=== PATIENT | male | born 1965 | race Two or more races ===

== ENCOUNTER 2024-02-20 22:02 | Inpatient (IN) | payer MEDICAID, OTHER ==
[~2024-02-20] VITALS: Ht 172.7 cm; Wt 98.4 kg
[2024-02-20 23:00] VITALS: PULSE 81; O2SAT 96
[2024-02-21] VITALS (7 sets, daily range): BP systolic 126–133; BP diastolic 63–75; PULSE 65–73; RESP 14–18; TEMP 97.8–98.4; O2SAT 97–98
[2024-02-21 00:37] LABS: Basophils # (auto) 0.1 10 ^3/uL (0-0.2); Basophils % (auto) 0.7 % (0.0-2.0); Eosinophils # (auto) 0.1 10 ^3/uL (0-0.8); Eosinophils % (auto) 0.8 % (0.0-7.0); Hematocrit 44.8 % (41.0-53.0); Hemoglobin 15.5 g/dL (13.5-17.5); Lymphocytes # (auto) 3.3 10 ^3/uL (0.4-5.4); Lymphocytes % (auto) 22.6 % (10.0-50.0); Mean Corpuscular Hemoglobin 28.2 pg (28.0-32.0); Mean Corpuscular Hgb Conc. 34.5 g/dL (32.0-36.0); Mean Corpuscular Volume 81.8 fL (80.0-100.0); Monocytes # (auto) 1.4 10 ^3/uL (0-1.3); Monocytes % (auto) 9.3 % (0.0-12.0); Neutrophils # (auto) 9.7 10 ^3/uL (1.6-8.6); Neutrophils % (auto) 66.6 % (37.0-80.0); Nucleated Red Blood Cells % 0.1 %; Platelet Count (auto) 241 10^3/uL (140-450); Red Blood Cells 5.48 10^6/uL (4.5-5.90); White Blood Cell 14.6 10^3/uL (4.4-10.8)
[2024-02-21 00:52] LABS: Chloride 106 mmol/L (98-107); Sodium 141 mmol/L (136-145)
[2024-02-21 00:53] LABS: Anion Gap 10 (5-15); Calcium 9.4 mg/dL (8.7-10.4); Carbon Dioxide 25 mmol/L (20-30)
[2024-02-21 00:58] LABS: BUN/Creatinine Ratio 21.3 (10.0-20.0); Blood Urea Nitrogen 23 mg/dL (9-23); Glucose 109 mg/dL (74-106)
[2024-02-21] MEDS: HALOPERIDOL LACTATE 5 MG/ML INJ VIAL IM ONE (02:54)
[2024-02-21] MEDS ORDERED: HYDROcodone-ACET 5/325MG TAB PO PRN (03:00)
[2024-02-21] MEDS ORDERED: cefTRIAXone 1GM/50ML D5W 50 ML IV ONE (03:00)
[2024-02-21] MEDS ORDERED: DEXTROSE (50%) 50ML SYRG IV PRN (03:00)
[2024-02-21] MEDS ORDERED: ACETAMINOPHEN 325 MG TAB PO PRN (03:00)
[2024-02-21] MEDS ORDERED: ONDANSETRON HCL 4 MG/2 ML VIAL IV PRN (03:00)
[2024-02-21] MEDS ORDERED: MORPHINE SULFATE INJ 2 MG/ml SYRG IV PRN (03:30)
[2024-02-21] MEDS ORDERED: NITROGLYCERIN 0.4 MG SL TAB SL PRN (03:30)
[2024-02-21] MEDS ORDERED: cefTRIAXone W LIDOCAINE 1 GM IM IM SCH (04:30)
[2024-02-21] MEDS: SODIUM CHLOR 0.9% PF (SALINE LOCK) 10ML VIAL/SYR IV SCH (06:25)
[2024-02-21] MEDS: cefTRIAXone 1GM/50ML D5W 50 ML IV SCH (06:25)
[2024-02-21] MEDS: InsuLIN REG 1unit/0.01ml Soln (100units/ml) SC SCH (06:58)
[2024-02-21] MEDS: ACCU-CHEK COMFORT CURVE STRIP VI SCH (06:59)
[2024-02-21 09:17] LABS: Basophils # (auto) 0.1 10 ^3/uL (0-0.2); Basophils % (auto) 0.5 % (0.0-2.0); Eosinophils # (auto) 0.1 10 ^3/uL (0-0.8); Eosinophils % (auto) 1.1 % (0.0-7.0); Hematocrit 44.2 % (41.0-53.0); Hemoglobin 15.4 g/dL (13.5-17.5); Lymphocytes # (auto) 2.2 10 ^3/uL (0.4-5.4); Mean Corpuscular Hemoglobin 28.2 pg (28.0-32.0); Mean Corpuscular Hgb Conc. 34.8 g/dL (32.0-36.0); Monocytes # (auto) 1.1 10 ^3/uL (0-1.3); Monocytes % (auto) 9.9 % (0.0-12.0); Neutrophils # (auto) 7.6 10 ^3/uL (1.6-8.6); Neutrophils % (auto) 68.5 % (37.0-80.0); Nucleated Red Blood Cells % 0.1 %; Platelet Count (auto) 217 10^3/uL (140-450); Red Blood Cells 5.46 10^6/uL (4.5-5.90); White Blood Cell 11.1 10^3/uL (4.4-10.8)
[2024-02-21 09:28] LABS: Alanine Aminotransferase 30 U/L (7-40); Alkaline Phosphatase 77 U/L (46-116); Anion Gap 5 (5-15); Aspartate Aminotransferase 25 U/L (13-40); BUN/Creatinine Ratio 17.6 (10.0-20.0); Blood Urea Nitrogen 18 mg/dL (9-23); Calcium 9.3 mg/dL (8.7-10.4); Carbon Dioxide 27 mmol/L (20-30); Chloride 108 mmol/L (98-107); Glucose 108 mg/dL (74-106); Potassium 4.2 mmol/L (3.5-5.1); Sodium 140 mmol/L (136-145)
[2024-02-21 09:29] LABS: Albumin 4.4 g/dL (3.2-4.8); Bilirubin, Total 0.6 mg/dL (0.2-1.0); Total Protein 7.3 g/dL (5.7-8.2)
[2024-02-21] MEDS: ENOXAPARIN SOD 40 MG/0.4 ML SYRINGE SC SCH (09:32)
[2024-02-21] MEDS: FAMOTIDINE (10MG/ML) 2ML VL IV SCH (09:32)
[2024-02-22 08:00] VITALS: RESP 18
[2024-02-22 09:00] VITALS: BP 128/82; PULSE 69; RESP 18; TEMP 97.5; O2SAT 96
[2024-02-22] MEDS ORDERED: cefTRIAXone 1GM/50ML D5W 50 ML IV SCH (09:00)
[2024-02-22 11:16] LABS: Basophils # (auto) 0.1 10 ^3/uL (0-0.2); Basophils % (auto) 0.5 % (0.0-2.0); Eosinophils # (auto) 0.2 10 ^3/uL (0-0.8); Eosinophils % (auto) 1.6 % (0.0-7.0); Hematocrit 46.3 % (41.0-53.0); Hemoglobin 16.1 g/dL (13.5-17.5); Lymphocytes # (auto) 2.5 10 ^3/uL (0.4-5.4); Mean Corpuscular Hgb Conc. 34.8 g/dL (32.0-36.0); Mean Corpuscular Volume 80.5 fL (80.0-100.0); Monocytes # (auto) 1.2 10 ^3/uL (0-1.3); Monocytes % (auto) 11.9 % (0.0-12.0); Neutrophils # (auto) 6.4 10 ^3/uL (1.6-8.6); Nucleated Red Blood Cells % 0.2 %; Platelet Count (auto) 252 10^3/uL (140-450); Red Blood Cells 5.74 10^6/uL (4.5-5.90); White Blood Cell 10.4 10^3/uL (4.4-10.8)
[2024-02-22 11:37] LABS: Alanine Aminotransferase 40 U/L (7-40); Albumin 4.6 g/dL (3.2-4.8); Alkaline Phosphatase 82 U/L (46-116); Anion Gap 7 (5-15); Aspartate Aminotransferase 37 U/L (13-40); BUN/Creatinine Ratio 17.9 (10.0-20.0); Bilirubin, Total 0.5 mg/dL (0.2-1.0); Blood Urea Nitrogen 17 mg/dL (9-23); Calcium 9.4 mg/dL (8.7-10.4); Carbon Dioxide 25 mmol/L (20-30); Chloride 106 mmol/L (98-107); Glucose 92 mg/dL (74-106); Potassium 3.8 mmol/L (3.5-5.1); Sodium 138 mmol/L (136-145); Total Protein 7.5 g/dL (5.7-8.2)
[2024-02-22 12:43] VITALS: BP 129/75; PULSE 73; RESP 18; TEMP 97.4; O2SAT 95
[2024-02-22 16:53] VITALS: BP 134/87; PULSE 81; RESP 18; TEMP 98.3; O2SAT 95
[2024-02-22 20:00] VITALS: RESP 18
[2024-02-22 21:00] VITALS: BP 143/88; PULSE 81; RESP 19; TEMP 97.7; O2SAT 94
[2024-02-23 01:00] VITALS: BP 145/86; PULSE 74; RESP 18; TEMP 98.1; O2SAT 95
[2024-02-23 05:00] VITALS: BP 117/81; PULSE 69; RESP 20; TEMP 97.9; O2SAT 98
[2024-02-23 08:00] VITALS: RESP 18
[2024-02-23] MEDS: DOCUSATE SOD 100 MG CAP PO PRN (08:29)
== END 2024-02-23 14:55 | disposition left against medical advice (07) | DRG 861 ==
LOC: ER 22:02 → EDBD 22:02 → TELE 02-21 03:19 → TELE-WESTW 02-21 09:05 → UNDODISIN 02-23 14:55
PROVIDERS: ADMIT Nurse Practitioner Family; ATTEND Internal Medicine
DX: R41.82 Altered mental status, unspecified (principal); F03.90 Unspecified dementia, unspecified severity, without behavioral disturbance, psychotic disturbance, mood disturbance, and anxiety; Z53.29 Procedure and treatment not carried out because of patient's decision for other reasons; R53.1 Weakness; Z78.1 Physical restraint status; Z79.899 Other long term (current) drug therapy
CPT/HCPCS: 36415; 70450; 71045; 80048; 80053; 82962; 84484; 85025; 87081; 93005; 96365; 96372; G0378; J0696

== ENCOUNTER 2024-02-25 15:19 | Inpatient (IN) | payer MEDICAID, OTHER ==
[~2024-02-25] VITALS: Ht 207.8 cm; Wt 99.4 kg
[2024-02-25 16:11] VITALS: PULSE 107; RESP 16; O2SAT 96
[2024-02-25 17:23] LABS: Basophils # (auto) 0 10 ^3/uL (0-0.2); Basophils % (auto) 0.3 % (0.0-2.0); Eosinophils # (auto) 0.1 10 ^3/uL (0-0.8); Eosinophils % (auto) 0.6 % (0.0-7.0); Hematocrit 46.1 % (41.0-53.0); Hemoglobin 15.5 g/dL (13.5-17.5); Lymphocytes # (auto) 2.5 10 ^3/uL (0.4-5.4); Lymphocytes % (auto) 18.7 % (10.0-50.0); Mean Corpuscular Hemoglobin 27.4 pg (28.0-32.0); Mean Corpuscular Hgb Conc. 33.6 g/dL (32.0-36.0); Mean Corpuscular Volume 81.8 fL (80.0-100.0); Monocytes # (auto) 1.3 10 ^3/uL (0-1.3); Monocytes % (auto) 9.7 % (0.0-12.0); Neutrophils # (auto) 9.6 10 ^3/uL (1.6-8.6); Neutrophils % (auto) 70.7 % (37.0-80.0); Nucleated Red Blood Cells % 0.1 %; Platelet Count (auto) 270 10^3/uL (140-450); Red Blood Cells 5.64 10^6/uL (4.5-5.90); Red Cell Distribution Width 15.4 % (11.8-14.3); White Blood Cell 13.6 10^3/uL (4.4-10.8)
[2024-02-25 17:38] LABS: Acetaminophen < 2.0 UG/ML (10.0-20.0); Alanine Aminotransferase 64 U/L (7-40); Alkaline Phosphatase 84 U/L (46-116); Anion Gap 18 (5-15); Aspartate Aminotransferase 31 U/L (13-40); BUN/Creatinine Ratio 21.7 (10.0-20.0); Blood Urea Nitrogen 26 mg/dL (9-23); Carbon Dioxide 15 mmol/L (20-30); Chloride 105 mmol/L (98-107); Glucose 191 mg/dL (74-106); Potassium 3.1 mmol/L (3.5-5.1); Sodium 138 mmol/L (136-145)
[2024-02-25 17:39] LABS: Albumin 4.3 g/dL (3.2-4.8); Bilirubin, Total 1.2 mg/dL (0.2-1.0); Total Protein 7.3 g/dL (5.7-8.2)
[2024-02-25 17:41] LABS: Salicylate < 3.0 mg/dL (2.8-20.0)
[2024-02-25] MEDS: SODIUM CHLORIDE 0.9% 1,000 ML IV ONE (18:16)
[2024-02-25] MEDS ORDERED: hydrALAZINE HCL 20 MG/ML VL IV PRN (19:00)
[2024-02-25] MEDS ORDERED: ONDANSETRON HCL 4 MG/2 ML VIAL IV PRN (19:00)
[2024-02-25] MEDS ORDERED: DEXTROSE (50%) 50ML SYRG IV PRN (19:00)
[2024-02-25] MEDS ORDERED: DOCUSATE SOD 100 MG CAP PO PRN (19:00)
[2024-02-25] MEDS ORDERED: HYDROcodone-ACET 5/325MG TAB PO PRN (19:00)
[2024-02-25] MEDS ORDERED: MORPHINE SULFATE INJ 2 MG/ml SYRG IV PRN (19:30)
[2024-02-25] MEDS ORDERED: NITROGLYCERIN 0.4 MG SL TAB SL PRN (19:30)
[2024-02-25 19:45] VITALS: PULSE 77; RESP 18; O2SAT 93
[2024-02-25] MEDS: SODIUM CHLORIDE 0.9% 1,000 ML IV SCH (20:05)
[2024-02-25] MEDS: POTASSIUM CHL 20MEQ/100ML 100 ML IV SCH (20:05)
[2024-02-25] MEDS: cefTRIAXone 1GM/50ML D5W 50 ML IV ONE (21:15)
[2024-02-25] MEDS: InsuLIN REG 1unit/0.01ml Soln (100units/ml) SC SCH (21:30)
[2024-02-25] MEDS: ACCU-CHEK COMFORT CURVE STRIP VI SCH (21:30)
[2024-02-26 06:24] LABS: Basophils # (auto) 0.1 10 ^3/uL (0-0.2); Basophils % (auto) 0.6 % (0.0-2.0); Eosinophils # (auto) 0.2 10 ^3/uL (0-0.8); Eosinophils % (auto) 1.9 % (0.0-7.0); Hemoglobin 14.4 g/dL (13.5-17.5); Lymphocytes # (auto) 2.7 10 ^3/uL (0.4-5.4); Lymphocytes % (auto) 27.9 % (10.0-50.0); Mean Corpuscular Hemoglobin 27.9 pg (28.0-32.0); Mean Corpuscular Hgb Conc. 34.2 g/dL (32.0-36.0); Mean Corpuscular Volume 81.5 fL (80.0-100.0); Monocytes # (auto) 1.3 10 ^3/uL (0-1.3); Monocytes % (auto) 13.8 % (0.0-12.0); Neutrophils # (auto) 5.5 10 ^3/uL (1.6-8.6); Neutrophils % (auto) 55.8 % (37.0-80.0); Nucleated Red Blood Cells % 0.1 %; Platelet Count (auto) 236 10^3/uL (140-450); Red Blood Cells 5.15 10^6/uL (4.5-5.90); Red Cell Distribution Width 15.1 % (11.8-14.3); White Blood Cell 9.8 10^3/uL (4.4-10.8)
[2024-02-26 06:36] LABS: Alanine Aminotransferase 62 U/L (7-40); Albumin 3.8 g/dL (3.2-4.8); Alkaline Phosphatase 74 U/L (46-116); Anion Gap 9 (5-15); Aspartate Aminotransferase 27 U/L (13-40); BUN/Creatinine Ratio 24.5 (10.0-20.0); Bilirubin, Total 0.6 mg/dL (0.2-1.0); Blood Urea Nitrogen 24 mg/dL (9-23); Calcium 8.6 mg/dL (8.7-10.4); Carbon Dioxide 23 mmol/L (20-30); Chloride 110 mmol/L (98-107); Glucose 101 mg/dL (74-106); Potassium 3.4 mmol/L (3.5-5.1); Sodium 142 mmol/L (136-145); Total Protein 6.3 g/dL (5.7-8.2)
[2024-02-26] MEDS: InsuLIN REG 1unit/0.01ml Soln (100units/ml) SC SCH (07:00)
[2024-02-26] MEDS: cefTRIAXone 1GM/50ML D5W 50 ML IV SCH (08:43)
[2024-02-26] MEDS: ASPirin 81 mg TAB PO SCH (10:06)
[2024-02-26] MEDS: FAMOTIDINE (10MG/ML) 2ML VL IV SCH (10:06)
[2024-02-26 11:00] VITALS: PULSE 78; RESP 18; O2SAT 95
[2024-02-26 20:00] VITALS: PULSE 73; RESP 15; O2SAT 100
[2024-02-27] MEDS: HALOPERIDOL LACTATE 5 MG/ML INJ VIAL IM ONE (00:59)
[2024-02-27 13:42] VITALS: PULSE 80; RESP 18; O2SAT 98
[2024-02-27 19:37] VITALS: PULSE 69; RESP 14; O2SAT 98
[2024-02-28 02:49] LABS: Urine Bacteria None Seen /hpf (None Seen)
[2024-02-28 02:55] LABS: Urine Blood Negative /uL (Negative); Urine Clarity Clear (Clear); Urine Color Yellow (Yellow); Urine Protein, UAD Negative (Negative); Urine Specific Gravity 1.025 (1.001-1.035); Urine Urobilinogen 6 mg/dL (Negative); Urine WBC 1 /hpf (0 - 3); Urine pH 6.5 (5.0-9.0)
[2024-02-28 12:10] VITALS: BP 122/70; PULSE 61; RESP 17; TEMP 97.5; O2SAT 99
[2024-02-28 17:00] VITALS: BP 135/82; PULSE 64; RESP 17; TEMP 98.1; O2SAT 96
[2024-02-28 20:00] VITALS: PULSE 63; RESP 18; O2SAT 97
[2024-02-28 20:48] VITALS: BP 130/78; PULSE 63; RESP 18; TEMP 98.3; O2SAT 97
[2024-02-29 01:14] VITALS: BP 129/77; PULSE 70; RESP 19; TEMP 98.1; O2SAT 99
[2024-02-29 04:59] VITALS: BP 125/75; PULSE 67; RESP 18; TEMP 98; O2SAT 99
[2024-02-29 09:00] VITALS: BP 124/73; PULSE 62; RESP 18; TEMP 98; O2SAT 95
[2024-02-29 13:00] VITALS: BP_SYST 124; BP_SYST 142; BP_DIAS 73; BP_DIAS 88; PULSE 62; PULSE 66; RESP 18; TEMP 98; TEMP 98.3; O2SAT 93; O2SAT 95
[2024-02-29 17:00] VITALS: BP 151/95; PULSE 60; RESP 18; TEMP 98.1; O2SAT 100
[2024-02-29 21:00] VITALS: BP 138/85; PULSE 91; RESP 18; TEMP 98.2; O2SAT 97
[2024-03-01 01:00] VITALS: BP 131/86; PULSE 75; RESP 17; TEMP 98.3; O2SAT 96
[2024-03-01 05:00] VITALS: BP 140/72; PULSE 65; RESP 18; TEMP 98.1; O2SAT 97
[2024-03-01 09:00] VITALS: BP 106/65; PULSE 68; RESP 18; TEMP 98; O2SAT 96
[2024-03-01 17:00] VITALS: BP 110/71; PULSE 68; RESP 18; TEMP 98.3; O2SAT 94
[2024-03-01] MEDS ORDERED: NYSTATIN TOPICAL POWDER 15GM TOP SCH (18:00)
[2024-03-01 21:00] VITALS: BP 119/81; PULSE 77; RESP 19; TEMP 98.3; O2SAT 97
[2024-03-02 01:13] VITALS: BP_SYST 123; BP_SYST 134; BP_DIAS 72; BP_DIAS 80; PULSE 58; PULSE 92; RESP 18; RESP 22; TEMP 97.5; TEMP 98.2; O2SAT 96; O2SAT 97
[2024-03-02 05:10] VITALS: BP 112/64; PULSE 57; RESP 18; TEMP 97.4; O2SAT 97
[2024-03-02 09:00] VITALS: BP 115/64; PULSE 69; RESP 17; TEMP 98.3; O2SAT 96
[2024-03-02 13:00] VITALS: BP 121/62; PULSE 71; RESP 16; TEMP 98; O2SAT 98
[2024-03-02 17:17] VITALS: BP 108/69; PULSE 72; RESP 16; TEMP 97.9; O2SAT 97
[2024-03-02 21:00] VITALS: BP 116/71; PULSE 67; RESP 20; TEMP 98; O2SAT 96
[2024-03-03 05:00] VITALS: BP 126/64; PULSE 56; RESP 19; TEMP 98.4; O2SAT 98
[2024-03-03 06:56] LABS: Anion Gap 8 (5-15); Calcium 9.1 mg/dL (8.7-10.4); Carbon Dioxide 25 mmol/L (20-30); Chloride 103 mmol/L (98-107); Potassium 3.5 mmol/L (3.5-5.1); Sodium 136 mmol/L (136-145)
[2024-03-03 07:02] LABS: BUN/Creatinine Ratio 11.2 (10.0-20.0); Blood Urea Nitrogen 11 mg/dL (9-23); Glucose 95 mg/dL (74-106); Magnesium 2.3 mg/dL (1.6-2.6)
[2024-03-03 09:00] VITALS: BP 111/68; PULSE 66; RESP 20; TEMP 97.7; O2SAT 96
[2024-03-03 13:00] VITALS: BP 118/70; PULSE 71; RESP 20; TEMP 98; O2SAT 98
[2024-03-03 17:00] VITALS: BP 114/71; PULSE 63; RESP 20; TEMP 98; O2SAT 97
[2024-03-03 21:00] VITALS: BP 115/63; PULSE 61; RESP 19; TEMP 97.6; O2SAT 96
[2024-03-04 00:59] VITALS: BP 116/74; PULSE 56; RESP 18; TEMP 97.6; O2SAT 96
[2024-03-04 05:00] VITALS: BP 127/67; PULSE 58; RESP 18; TEMP 97.2; O2SAT 95
[2024-03-04 08:45] VITALS: BP 112/71; PULSE 77; RESP 18; TEMP 97.1; O2SAT 94
[2024-03-04] MEDS: risperiDONE 1 MG TAB PO ONE (12:40)
[2024-03-04] MEDS: NYSTATIN TOPICAL POWDER 15GM TOP PRN (12:54)
[2024-03-04 13:00] VITALS: BP 121/68; PULSE 76; RESP 18; TEMP 97; O2SAT 95
[2024-03-04 17:00] VITALS: BP 104/65; PULSE 72; RESP 18; TEMP 97; O2SAT 98
[2024-03-04 21:15] VITALS: BP 113/70; PULSE 87; RESP 18; TEMP 98.3; O2SAT 98
[2024-03-05 01:00] VITALS: BP 109/64; PULSE 60; RESP 16; TEMP 97.9; O2SAT 98
[2024-03-05 04:18] VITALS: BP 108/58; PULSE 57; TEMP 98.7; O2SAT 97
[2024-03-05 09:00] VITALS: BP_SYST 115; BP_SYST 119; BP_DIAS 64; BP_DIAS 71; PULSE 64; RESP 17; RESP 18; TEMP 98.6; O2SAT 91; O2SAT 98
[2024-03-05] MEDS: risperiDONE 1 MG TAB PO SCH (09:54)
[2024-03-05 13:00] VITALS: BP 119/71; PULSE 66; RESP 18; TEMP 98.4; O2SAT 98
[2024-03-05 16:25] VITALS: BP 110/74; PULSE 70; RESP 18; TEMP 98.5; O2SAT 99
[2024-03-05 21:00] VITALS: BP 105/67; PULSE 64; RESP 18; TEMP 97.9; O2SAT 96
[2024-03-06] VITALS (8 sets, daily range): BP systolic 103–140; BP diastolic 53–84; PULSE 54–83; RESP 18–19; TEMP 97.9–98.3; O2SAT 96–97
[2024-03-06] MEDS: risperiDONE 1 MG TAB PO SCH (00:28)
[2024-03-07 01:00] VITALS: BP 116/58; PULSE 60; RESP 20; O2SAT 99
[2024-03-07 05:00] VITALS: BP 113/54; PULSE 70; RESP 20; TEMP 97.8; O2SAT 97
[2024-03-07 08:00] VITALS: BP 109/62; PULSE 65; RESP 18; TEMP 97.4; O2SAT 98
[2024-03-07 12:00] VITALS: BP 114/62; PULSE 70; RESP 18; TEMP 97.7; O2SAT 97
[2024-03-07 20:00] VITALS: RESP 18; O2SAT 96
[2024-03-07 21:00] VITALS: BP 124/63; PULSE 62; RESP 18; TEMP 98.5; O2SAT 94
[2024-03-08 05:00] VITALS: BP 110/52; PULSE 63; RESP 18; TEMP 98.2; O2SAT 95
[2024-03-08 08:54] VITALS: BP 109/62; PULSE 79; RESP 19; TEMP 98.4; O2SAT 94
[2024-03-08 12:34] VITALS: BP 123/71; PULSE 66; RESP 21; TEMP 98; O2SAT 96
[2024-03-08 17:16] VITALS: BP 111/60; PULSE 66; RESP 18; TEMP 97.9; O2SAT 98
[2024-03-08 20:00] VITALS: PULSE 65; RESP 18; O2SAT 96
[2024-03-08 22:00] VITALS: BP 107/57; PULSE 64; RESP 18; TEMP 97.3; O2SAT 96
[2024-03-09 05:00] VITALS: BP 109/59; PULSE 62; RESP 17; TEMP 97; O2SAT 96
[2024-03-09 09:00] VITALS: BP 94/54; PULSE 64; RESP 19; TEMP 98.6; O2SAT 97
[2024-03-09 13:00] VITALS: BP 123/68; PULSE 84; RESP 19; TEMP 98.5; O2SAT 99
[2024-03-09 17:00] VITALS: BP 133/55; PULSE 72; RESP 19; TEMP 98.6; O2SAT 98
[2024-03-09 20:00] VITALS: PULSE 67; RESP 18; O2SAT 95
[2024-03-10] VITALS (7 sets, daily range): BP systolic 113–152; BP diastolic 67–85; PULSE 63–79; RESP 18–21; TEMP 97.1–98.4; O2SAT 95–98
[2024-03-11] VITALS (8 sets, daily range): BP systolic 56–127; BP diastolic 70–89; PULSE 61–97; RESP 17–18; TEMP 97.3–99.1; O2SAT 95–99
[2024-03-12] VITALS (7 sets, daily range): BP systolic 101–134; BP diastolic 60–87; PULSE 62–71; RESP 18–20; TEMP 97.6–98.5; O2SAT 98–99
[2024-03-13] VITALS (7 sets, daily range): BP systolic 99–131; BP diastolic 53–76; PULSE 52–81; RESP 18–20; TEMP 97.8–98.5; O2SAT 96–99
[2024-03-14] VITALS (8 sets, daily range): BP systolic 112–125; BP diastolic 57–69; PULSE 57–76; RESP 17–20; TEMP 97.5–98.3; O2SAT 95–98
[2024-03-15 01:19] VITALS: BP 156/57; PULSE 66; RESP 19; O2SAT 95
[2024-03-15 05:00] VITALS: BP 107/59; PULSE 64; RESP 19; TEMP 97.8; O2SAT 96
[2024-03-15 08:00] VITALS: PULSE 60; RESP 20; O2SAT 96
[2024-03-15 09:00] VITALS: BP 108/66; PULSE 60; RESP 20; TEMP 98; O2SAT 96
[2024-03-15 13:00] VITALS: BP 112/67; PULSE 64; RESP 20; TEMP 98.8; O2SAT 97
[2024-03-15 20:54] VITALS: BP 117/60; PULSE 61; RESP 19; TEMP 98.1; O2SAT 98
[2024-03-16] VITALS (7 sets, daily range): BP systolic 107–126; BP diastolic 61–79; PULSE 60–73; RESP 18–19; TEMP 97.9–98.3; O2SAT 95–100
[2024-03-17 01:00] VITALS: BP 118/78; PULSE 61; RESP 18; TEMP 98.2; O2SAT 98
[2024-03-17 05:00] VITALS: BP 110/64; PULSE 66; RESP 18; TEMP 98; O2SAT 99
[2024-03-17 08:00] VITALS: RESP 18
[2024-03-17 09:00] VITALS: BP 113/68; PULSE 62; RESP 18; TEMP 98; O2SAT 100
[2024-03-17 11:37] VITALS: BP 114/65; PULSE 65; RESP 18; TEMP 98.2; O2SAT 98
== END 2024-03-17 12:05 | disposition home health service (06) | DRG 422 ==
LOC: ER 15:19 → EDBD 15:19 → MERGE 19:30 → TELE 19:30 → WEST WING 19:49 → TELE-WESTW 02-28 12:03 → WEST WING 02-29 00:07 → TELE-WESTW 03-06 07:53 → WEST WING 03-06 07:54
PROVIDERS: ADMIT Nurse Practitioner Family; ATTEND Internal Medicine Geriatric Medicine
DX: E86.0 Dehydration (principal); N17.0 Acute kidney failure with tubular necrosis; G93.41 Metabolic encephalopathy; D72.829 Elevated white blood cell count, unspecified; E87.6 Hypokalemia; F03.90 Unspecified dementia, unspecified severity, without behavioral disturbance, psychotic disturbance, mood disturbance, and anxiety; I10 Essential (primary) hypertension; R73.9 Hyperglycemia, unspecified; Z79.899 Other long term (current) drug therapy
CPT/HCPCS: 36415; 70450; 71045; 80048; 80053; 80329; 81001; 82962; 83036; 83735; 85025; 87081; G0378; J1815; J3480; J3490